=== PATIENT | female | born 1965 | race Caucasian/White ===

== ENCOUNTER 2018-07-13 01:38 | Emergency (ER) | payer SELFPAY ==
[~2018-07-13] VITALS: Ht 157.5 cm; Wt 73.3 kg
[2018-07-13 01:51] VITALS: BP 217/130; PULSE 87; RESP 20; Ht 157.5 cm; Wt 73.3 kg
--- NOTE | 2018-07-13 02:55 | ERD ---
ER Documentation Chief Complaint Chief Complaint EPIGASTRIC PAIN X 2 DAYS, SOB X 4 MONTHS HPI This is a 53-year-old female with epigastric pain for 2 days and shortness of breath for the past 4 months. She said the pain is mild to moderate in intensity epigastric region with no associated vomiting but mild nausea. She does have a history of high blood pressure but is not on any medications.. Denies any fevers or chills. Denies any chest pains. Denies any other current complaints. Shortness of breath is transient in nature last 5-7 minutes per episode and comes at all times of day during all activities. ROS All systems reviewed and are negative except as per history of present illness. Allergies Allergies: Coded Allergies: Penicillins (Verified Allergy, Unknown, 07/13/18) Physical Exam Vitals Vital Signs Date Temp Pulse Resp B/P (MAP) Pulse Ox O2 O2 Flow FiO2 Time Delivery Rate 07/13/18 97.7 87 20 217/130 96 01:51 (159) Physical Exam Const: No acute distress Head: Atraumatic Eyes: Normal Conjunctiva ENT: Normal External Ears, Nose and Mouth. Neck: Full range of motion. No meningismus. Resp: Clear to auscultation bilaterally Cardio: Regular rate and rhythm, no murmurs Abd: Soft, non tender, non distended. Normal bowel sounds Skin: No petechiae or rashes Back: No midline or flank tenderness Ext: No cyanosis, or edema Neur: Awake and alert Psych: Normal Mood and Affect Procedures/MDM Emergency department course: Patient seen and evaluated triage nurse. Placement family evaluation. After MD evaluation, patient decided to sign out AGAINST MEDICAL ADVICE. Upon signing out AMA patient was alert and oriented x4 with goal oriented speech and good decision-making capacity with the ability to negotiate the community. She understood the risks of leaving against AMA, including possible due to condition. She was able to relate understanding of these risks by stating them in her own words. Patient scheduled follow-up with her primary care physician and return for worsening symptoms. the patient has made the decision to leave this Emergency Department and any ongoing care against the advice of the emergency physician. The patient has been informed of and verbalized understanding of the inherent risks of this decision, including , disability. The patient explained to me the reason for wanting to sign out against medical advice which was she did not want to get poked by needles. the patient was given alternative therapeutic options, The patient has the capacity to make this decision and accepts the responsibility of leaving at this time. The patient and all necessary parties have been advised that the patient may return at any time for further evaluation or treatment. The patient's condition at time of discharge is fair Departure Diagnosis: Primary Impression: Epigastric pain Condition: Fair CHRISTINA REYES Jul 13, 2018 02:55
== END 2018-07-13 03:04 | disposition left against medical advice (07) ==
LOC: E/R 01:38
DX: R10.13 Epigastric pain (principal)
CPT/HCPCS: 93005